=== PATIENT | male | born 1950 | race Hispanic/Latino ===

== ENCOUNTER 2018-08-02 12:26 | Emergency (ER) | payer MEDICARE, BC ==
[2018-08-02] MEDS ORDERED: Adacel (T-DAP) 0.5 ML VIAL ONE (12:35)
== END 2018-08-02 13:19 | disposition home or self-care (01) ==
LOC: ERS 12:26
DX: S61.215A Laceration without foreign body of left ring finger without damage to nail, initial encounter (principal); I10 Essential (primary) hypertension; E78.5 Hyperlipidemia, unspecified; Z23 Encounter for immunization; Z79.82 Long term (current) use of aspirin; Z79.899 Other long term (current) drug therapy; W25.XXXA Contact with sharp glass, initial encounter
CPT/HCPCS: 12001; 90471; 90715